=== PATIENT | female | born 1965 | race Caucasian/White ===

== ENCOUNTER → 2016-04-03 | Outpatient (CLI) | payer OTHER ==
--- NOTE | 2016-04-03 13:51 | CT ---
EXAMINATION TYPE: CT brain wo con DATE OF EXAM: 04/03/2016 1:36 PM COMPARISON: NONE HISTORY: dizziness CT DLP: 1736 (total for brain and neck) mGycm Automated exposure control for dose reduction was used. FINDINGS: There is no acute intracranial hemorrhage, mass effect, or midline shift identified. The ventricles and sulci are within normal limits in size. The globes are intact and the visualized sinuses are brisa ar. IMPRESSION: No acute intracranial hemorrhage, mass effect, or midline shift is seen.
--- NOTE | 2016-04-03 13:57 | CT ---
EXAMINATION TYPE: CT soft tissue neck w con DATE OF EXAM: 04/03/2016 1:38 PM COMPARISON: 08/11/2015 HISTORY: swollen lymph glands CT DLP: 1736 (total for brain and neck) mGycm Automated exposure control for dose reduction was used. CONTRAST: CT scan of the neck is performed following with IV Contrast, patient injected with 100 ml mL of Omnip aque 300. Axial images are obtained, coronal and sagittal reformatted images are reviewed. FINDINGS: Calcification the right peritonsillar region is nonspecific. Oropharynx and nasopharynx are symmetric. Intracranial and intraorbital structures demonstrate no abnormality. Parotid and submandibular glands have a normal appearance. There is shotty adenopathy seen scattered throughout the soft tissues of the neck. No pathologic myriam opathy seen. Hypertrophic and degenerative change of the spine noted. Subcentimeter right thyroid nodule noted. Emphysematous changes involving the lung apices with multiple subpleural areas of nodularity calcifie d granuloma left upper lobe. Sternotomy wires noted. Emphysematous changes noted. Vocal cords have a normal appearance. IMPRESSION: 1. No pathologic adenopathy 2. Multiple bilateral pulmonary nodules some of which are calcified correlate clinically. 3. Stable subcentimeter thyroid nodule on the right.
[2016-04-03 15:28] LABS: Bilirubin, Delta 0.2 mg/dL (0.0-0.2); Total Bilirubin 0.5 mg/dL (0.2-1.3); Total Protein 7.4 g/dL (6.3-8.2)
== END | disposition home or self-care (01) ==
LOC: RADCTMAIN 12:51
PROVIDERS: ATTEND Family Medicine
DX: R91.8 Other nonspecific abnormal finding of lung field (principal)
CPT/HCPCS: 80061; 80076; 70491; 70450; Q9967

== ENCOUNTER → 2016-05-15 | Outpatient (CLI) | payer OTHER ==
--- NOTE | 2016-05-15 17:03 | MR ---
EXAMINATION TYPE: MR shoulder LT wo con DATE OF EXAM: 05/15/2016 3:56 PM COMPARISON: NONE HISTORY: Left shoulder Pain TECHNIQUE: Multiplanar, multisequence imaging of the left shoulder is performed without contrast. FINDINGS: Rotator Cuff: Increased signal involving the distal supraspinatus tendons greater along the bursal soto rface and anterior fibers compatible with partial tear. No through thickness tear or retraction ident ified. Acromioclavicular Joint: Mild hypertrophic change of the AC joint. There is very mild mass effect and impingement upon the supraspinatus tendon and muscle. Glenohumeral Joint: Joint spaces preserved. No sizable effusion. Inferior glenohumeral ligament intac t. Labrum: The labrum appears grossly intact given limitation of non-arthrogram study. Biceps Tendon: The long head of biceps is in normal location within bicipital groove. Bone marrow signal: No focal abnormal marrow signal is appreciated. Other: No additional significant abnormality is appreciated. IMPRESSION: 1. Supraspinatus distal tendinosis with partial bursal surface tear but no evidence of through thickn ess tear or retraction. 2. Mild impingement secondary to hypertrophic change of the AC joint.
== END | disposition home or self-care (01) ==
LOC: RADMRIMAIN 15:00
PROVIDERS: ATTEND Psychiatry & Neurology Pain Medicine
DX: M75.112 Incomplete rotator cuff tear or rupture of left shoulder, not specified as traumatic (principal); M89.312 Hypertrophy of bone, left shoulder

== ENCOUNTER → 2017-04-22 | Outpatient (CLI) | payer OTHER ==
--- NOTE | 2017-04-23 10:51 | MM ---
Reason for exam: screening (asymptomatic). History: Patient is postmenopausal. Family history of breast cancer in mother at age 59. Took hormonal contraceptives beginning at age 14. Physical Findings: A clinical breast exam by your physician is recommended on an annual basis and results should be correlated with mammographic findings. MG Screening Mammo w CAD Bilateral CC and MLO view(s) were taken. No prior studies available for comparison. There are scattered fibroglandular densities. Focal asymmetries bilaterally upper outer quadrant suspected global asymmetries. As no prior is available for comparison purposes, 6 month follow up is recommended. ASSESSMENT: Probably benign, BI-RAD 3 RECOMMENDATION: Follow-up diagnostic mammogram of both breasts in 6 months.
== END | disposition home or self-care (01) ==
LOC: RADMAMWWP 12:50
PROVIDERS: ATTEND Family Medicine
DX: Z12.31 Encounter for screening mammogram for malignant neoplasm of breast (principal)
CPT/HCPCS: 77067

== ENCOUNTER 2017-07-12 21:12 | Observation (INO) | payer OTHER ==
--- NOTE | 2017-07-12 21:33 | ED ---
Chest Pain HPI - General Chief Complaint: Chest Pain Stated Complaint: Chest pressure Time Seen by Provider: 07/12/17 21:30 Source: patient Mode of arrival: ambulatory Limitations: no limitations - History of Present Illness Initial Comments: This patient is 52-year-old lady who presents with 2 main complaints to the emergency department today. On the first is a chest discomfort, that she describes as feeling "like someone is holding my heart but not squeezing it." She states this is been going on for nearly 2 days now. She states that it is just a very mild sensation. It has not been accompanied by any other symptoms. She has not discovered anything that makes it get better or worse. The second complaint that she has is a feeling of a "flash," that she states will start in her legs, and go up from there to her chest, and then out both arms. She states that this sensation lasts for just 1-2 seconds. She states that she has had 14 episodes of this today. She also relates that there is sometimes of visual component to it. She states that she will see something from a video game that she used to play for 1-2 seconds, when the flash comes on. The patient states that she had been having one to 2 episodes of this per day, and had seen her physician, and she does have a scheduled MRI for the first week of July. She became concerned when she was having many more episodes of it today. The patient had a previous prescription for gabapentin, with the feeling that someone sensations may be related to neuropathy and she states that she tried this today without any change MD Complaint: chest pain, other -: days(s) Onset: during rest Pain Location: substernal Pain Radiation: none Severity: mild Quality: other (See above) Consistency: constant Improves With: nothing Worsens With: nothing Treatments Prior to Arrival: none - Related Data Home Medications Medication Instructions Recorded Confirmed Aspirin EC [Ecotrin Low Dose] 81 mg PO DAILY 12/15/15 07/12/17 Atorvastatin [Lipitor] 40 mg PO HS 12/15/15 07/12/17 Azelastine Nasal [place] 0.1% 1 spray EA NOSTRIL BID PRN 12/15/15 07/12/17 Cholecalciferol [Vitamin D3] 2,000 unit PO DAILY 12/15/15 07/12/17 Cyclobenzaprine [Flexeril] 5 mg PO HS 12/15/15 07/12/17 Gabapentin [Neurontin] 100 mg PO TID 12/15/15 07/12/17 Krill/Om-3/Dha/Epa/Phospho/Ast 1 cap PO DAILY 12/15/15 07/12/17 [[place]-3 Krill Oil 300 mg Sfgl] Multivit with Calcium,Iron,Min 1 tab PO DAILY 12/15/15 07/12/17 [Women's Daily Multivitamin] Naproxen 500 mg PO BID PRN 12/15/15 07/12/17 rOPINIRole HCL [Requip] 0.5 mg PO HS 12/15/15 07/12/17 ALPRAZolam [Xanax] 0.25 mg PO DAILY PRN 07/12/17 07/12/17 Albuterol Inhaler [Ventolin Hfa 1 - 2 puff INHALATION RT-Q6H PRN 07/12/17 Inhaler] HYDROcodone/APAP 5-325MG [[place] 1 tab PO Q6HR PRN 07/12/17 07/12/17 5-325] Meclizine [Antivert] 25 mg PO TID PRN 07/12/17 07/12/17 Propafenone [Rythmol] 150 mg PO Q12H PRN 07/12/17 07/12/17 Allergies Allergy/AdvReac Type Severity Reaction Status Date / Time venom-wasp [wasp venom] Allergy Severe Anaphylaxis Verified 07/12/17 22:27 bupropion [From Wellbutrin] AdvReac Severe VIOLENT Verified 07/12/17 22:27 fluoxetine [From Prozac] AdvReac Severe SUICIDAL Verified 07/12/17 22:27 Beta-Blockers AdvReac Unknown LOW BP, Verified 07/12/17 22:27 (Beta-Adrenergic Bloc PASSES OUT milk AdvReac Unknown Unknown Verified 07/12/17 22:27 Review of Systems ROS Statement: Those systems with pertinent positive or pertinent negative responses have been documented in the HPI. ROS Other: All systems not noted in ROS Statement are negative. Constitutional: Denies: fever, chills, weakness Eyes: Denies: eye pain, vision change Respiratory: Denies: cough, dyspnea Cardiovascular: Denies: chest pain, palpitations, edema Gastrointestinal: Denies: abdominal pain, nausea, vomiting Genitourinary: Denies: dysuria Musculoskeletal: Denies: back pain Skin: Denies: rash Neurological: Denies: headache, weakness, numbness EKG Findings - EKG Results: EKG: interpreted by CHERRY MENDOSA, sinus rhythm (Rate 81 bpm), normal axis, normal QRS, normal ST/T, no acute changes - SD, Pacemaker, Normal: Normal tracing: normal tracing Past Medical History Past Medical History: Coronary Artery Disease (CAD), COPD, Hyperlipidemia, Musculoskeletal Disorder, Sleep Apnea/CPAP/BIPAP, Supraventricular Tachycardia ( SVT) Additional Past Medical History / Comment(s): RESTLESS LEG SYNDROME, USES C-PAP MACHINE, BRONCHITIS 2 WEEKS AGO., HERNIATED DISCS, HAS ATHLETES FOOT, HYPOGLYCEMIA-WATCHES DIET., VERTIGO, RAPID HEART RATE. History of Any Multi-Drug Resistant Organisms: None Reported Past Surgical History: Adenoidectomy, Coronary Bypass/CABG, Heart Catheterization Additional Past Surgical History / Comment(s): EAR TUBES , D & C, CABG (JUNE 2011 ) Past Anesthesia/Blood Transfusion Reactions: No Reported Reaction, Motion Sickness Past Psychological History: Anxiety, Panic Disorder Smoking Status: Current every day smoker Past Alcohol Use History: Heavy Past Drug Use History: None Reported - Past Family History Mother Family Medical History: Cancer Additional Family Medical History / Comment(s): BREAST CA Father Family Medical History: Cancer Additional Family Medical History / Comment(s): SKIN, LUNG, THROAT AND BRAIN CANCER WITH METS. General Exam Limitations: no limitations General appearance: alert, in no apparent distress Head exam: Present: atraumatic, normocephalic Eye exam: Present: normal appearance, PERRL, EOMI. Absent: scleral icterus, conjunctival injection, nystagmus ENT exam: Present: normal oropharynx, mucous membranes moist Neck exam: Present: normal inspection, full ROM Respiratory exam: Present: normal lung sounds bilaterally. Absent: respiratory distress, wheezes, rales, rhonchi, stridor Cardiovascular Exam: Present: regular rate, normal rhythm, normal heart sounds. Absent: systolic murmur, diastolic murmur, rubs, gallop GI/Abdominal exam: Present: soft. Absent: distended, tenderness, guarding, rebound, rigid, mass Extremities exam: Present: normal inspection, normal capillary refill. Absent: pedal edema, calf tenderness Back exam: Present: normal inspection. Absent: CVA tenderness (R), CVA tenderness (L) Neurological exam: Present: alert, oriented X3, CN II-XII intact. Absent: motor sensory deficit Skin exam: Present: warm, dry, intact, normal color. Absent: rash Course Vital Signs 07/12/17 07/12/17 21:20 21:45 Temperature 99.3 F Pulse Rate 83 Respiratory 18 18 Rate Blood Pressure 123/59 O2 Sat by Pulse 98 Oximetry Disposition Clinical Impression: Chest pain Disposition: ADMITTED IP TO THIS HOSP Condition: Good Is patient prescribed a controlled substance at d/c from ED?: No
[2017-07-12 21:58] LABS: Basophils % (A) 0 %; Eosinophils # (A) 0.2 k/uL (0-0.7); Eosinophils % (A) 3 %; HCT 46.1 % (34.0-46.0); HGB 15.7 gm/dL (11.4-16.0); Lymphocytes # (A) 2.4 k/uL (1.0-4.8); Lymphocytes % (A) 35 %; MCH 31.3 pg (25.0-35.0); MCHC 34.1 g/dL (31.0-37.0); MCV 91.7 fL (80.0-100.0); Mean Platelet Volume 6.5; Monocytes # (A) 0.3 k/uL (0-1.0); Monocytes % (A) 5 %; Neutrophils # (A) 3.9 k/uL (1.3-7.7); Neutrophils % (A) 55 %; Platelet Count 280 k/uL (150-450); RBC 5.03 m/uL (3.80-5.40)
--- NOTE | 2017-07-12 22:01 | XR ---
EXAMINATION TYPE: XR chest 1V portable DATE OF EXAM: 07/12/2017 COMPARISON: 04/29/2014 HISTORY: Chest pressure TECHNIQUE: Single frontal view of the chest is obtained. FINDINGS: There is no heart failure nor confluent pneumonic infiltrate. There are sternal wires. The re are chest leads. Costophrenic angles are clear. IMPRESSION: No active cardiopulmonary disease. No change. Old granulomatous disease.
[2017-07-12 22:07] LABS: Albumin 4.3 g/dL (3.5-5.0); Calcium 9.3 mg/dL (8.4-10.2); Magnesium 1.9 mg/dL (1.6-2.3); Partial Thromboplastin Time 23.8 sec (22.0-30.0); Potassium 4.4 mmol/L (3.5-5.1); Prothrombin Time 9.8 sec (9.0-12.0); Total Bilirubin 0.2 mg/dL (0.2-1.3)
[2017-07-12] MEDS ORDERED: NITROGLYCERIN SL TABS 0.4 MG TAB SUBLINGUAL PRN (23:17)
[2017-07-12] MEDS ORDERED: ALPRAZolam 0.25 MG TAB PO PRN (23:21)
[2017-07-12] MEDS ORDERED: ALBUTEROL NEBULIZED 2.5 MG/3 ML INHALATION PRN (23:21)
[2017-07-12] MEDS ORDERED: MECLIZINE 25 MG TAB PO PRN (23:21)
[2017-07-12] MEDS ORDERED: HYDROcodone/APAP 5-325MG 1 EACH TAB PO PRN (23:21)
[2017-07-13 00:54] VITALS: BMI 21.4
[2017-07-13 02:48] LABS: Cholesterol 240 mg/dL (<200); HDL Cholesterol 40 mg/dL (40-60); LDL Cholesterol,Calculated 185 mg/dL (0-99); Triglycerides 77 mg/dL (<150)
[2017-07-13 02:53] LABS: Creatine Kinase 42 U/L (30-135)
[2017-07-13 03:06] LABS: Creatine Kinase MB <0.2 ng/mL (0.0-2.4); Troponin I <0.012 ng/mL (0.000-0.034)
[2017-07-13 06:46] VITALS: RESP 18
--- NOTE | 2017-07-13 08:12 | P.CRDCN ---
History of Present Illness Consult date: 07/13/17 Requesting physician: Va Reynolds Consult reason: chest pain Chief complaint: Chest pain History of present illness: This is a 52-year-old female with history of coronary artery disease and prior bypass surgery, two-vessel, she states this was performed in 2011, history of hypertension, hyperlipidemia, not on any statins, nicotine dependence , anxiety, COPD. She presents to the hospital with symptoms of chest discomfort that she describes as somebody holding her heart, mild squeezing sensation, she denies any pressure, or pain. He denies any associated shortness of breath. She states with that she gets a sensation of burning which at times starts in her feet and other times radiates across his chest. According to the patient, she is under considerable stress, and states that she' s had several mental breakdowns recently. Blood pressure on arrival here 122/ 60 with a heart rate in the 80s, temperature 99.3 she's 98% on room air. Blood pressure this morning 113/56, heart rate in the 50s to 60s, afebrile, 98% on room air. Laboratory data was reviewed, white blood cell count 7.0, hemoglobin 15.7, platelet count 280. Sodium 143, potassium 4.4, BUN 14, creatinine 1.0, magnesium 1.9. Troponins are negative 2. Cholesterol 240, LDL 185, HDL 40, triglycerides 77. Chest x-ray does not reveal any acute cardiopulmonary disease. Her initial EKG on presentation here shows a normal sinus rhythm with ST-T wave changes noted in the anterior leads. Subsequent EKG shows normal sinus rhythm with progression of changes in the anterior leads. At the time of my examination this morning, she denies any chest discomfort, she just feels sleepy. 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. Past Medical History Past Medical History: Coronary Artery Disease (CAD), COPD, Hyperlipidemia, Musculoskeletal Disorder, Sleep Apnea/CPAP/BIPAP, Supraventricular Tachycardia ( SVT) Additional Past Medical History / Comment(s): RESTLESS LEG SYNDROME, USES C-PAP MACHINE, HERNIATED DISCS, HAS ATHLETES FOOT, HYPOGLYCEMIA-WATCHES DIET., VERTIGO, RAPID HEART RATE. History of Any Multi-Drug Resistant Organisms: None Reported Past Surgical History: Adenoidectomy, Coronary Bypass/CABG, Heart Catheterization Additional Past Surgical History / Comment(s): EAR TUBES , D & C, CABG (JUNE 2011 ) Past Anesthesia/Blood Transfusion Reactions: No Reported Reaction, Motion Sickness Past Psychological History: Anxiety, Bipolar, Panic Disorder Smoking Status: Current every day smoker Past Alcohol Use History: Heavy Additional Past Alcohol Use History / Comment(s): SMOKING SINCE 12 YRS OLD, SMOKES 1-2 PPD., SMOKING FOR 39 YEARS. STATES SHE USED TO DRINK HEAVILY AND QUIT 3 YEARS AGO. Past Drug Use History: None Reported - Past Family History Mother Family Medical History: Cancer Additional Family Medical History / Comment(s): BREAST CA Father Family Medical History: Cancer Additional Family Medical History / Comment(s): SKIN, LUNG, THROAT AND BRAIN CANCER WITH METS. Medications and Allergies Home Medications Medication Instructions Recorded Confirmed Type Aspirin EC [Ecotrin Low Dose] 81 mg PO DAILY 12/15/15 07/12/17 History Atorvastatin [Lipitor] 40 mg PO HS 12/15/15 07/12/17 History Azelastine Nasal [place] 0.1% 1 spray EA NOSTRIL BID PRN 12/15/15 07/12/17 History Cholecalciferol [Vitamin D3] 2,000 unit PO DAILY 12/15/15 07/12/17 History Cyclobenzaprine [Flexeril] 5 mg PO HS 12/15/15 07/12/17 History Gabapentin [Neurontin] 100 mg PO TID 12/15/15 07/12/17 History Krill/Om-3/Dha/Epa/Phospho/Ast 1 cap PO DAILY 12/15/15 07/12/17 History [[place]-3 Krill Oil 300 mg Sfgl] Multivit with Calcium,Iron,Min 1 tab PO DAILY 12/15/15 07/12/17 History [Women's Daily Multivitamin] Naproxen 500 mg PO BID PRN 12/15/15 07/12/17 History rOPINIRole HCL [Requip] 0.5 mg PO HS 12/15/15 07/12/17 History ALPRAZolam [Xanax] 0.25 mg PO DAILY PRN 07/12/17 07/12/17 History Albuterol Inhaler [Ventolin Hfa 1 - 2 puff INHALATION RT-Q6H PRN 07/12/17 History Inhaler] HYDROcodone/APAP 5-325MG [[place] 1 tab PO Q6HR PRN 07/12/17 07/12/17 History 5-325] Meclizine [Antivert] 25 mg PO TID PRN 07/12/17 07/12/17 History Propafenone [Rythmol] 150 mg PO Q12H PRN 07/12/17 07/12/17 History Allergies Allergy/AdvReac Type Severity Reaction Status Date / Time venom-wasp [wasp venom] Allergy Severe Anaphylaxis Verified 07/12/17 22:27 bupropion [From Wellbutrin] AdvReac Severe VIOLENT Verified 07/12/17 22:27 fluoxetine [From Prozac] AdvReac Severe SUICIDAL Verified 07/12/17 22:27 Beta-Blockers AdvReac Unknown LOW BP, Verified 07/12/17 22:27 (Beta-Adrenergic Bloc PASSES OUT milk AdvReac Unknown Unknown Verified 07/12/17 22:27 Physical Exam Vitals: Vital Signs Temp Pulse Pulse Resp BP BP Pulse Ox 07/13/17 04:00 97.6 F 58 L 17 113/55 98 07/13/17 00:03 98.6 F 77 16 133/77 98 07/13/17 00:02 97.1 F L 64 18 113/63 96 07/12/17 21:45 18 07/12/17 21:20 99.3 F 83 18 123/59 98 Intake and Output 07/12/17 07/13/17 07/13/17 22:59 06:59 14:59 Other: Weight 60.328 kg 60.3 kg PHYSICAL EXAMINATION: GENERAL: This is a 52-year-old female in no apparent distress examination. HEENT: Head is atraumatic, normocephalic. Pupils equal, round. Sclera anicteric. Conjunctiva are clear. Mucous membranes of the mouth are moist. Neck is supple. There is no elevated jugular venous pressure.] bruit is heard. HEART EXAMINATION: Heart S1 and S2 systolic murmur is heard. CHEST EXAMINATION: Lungs are clear to auscultation and precussion. No chest wall tenderness is noted on palpation or with deep breathing. ABDOMEN: Soft, nontender. Bowel sounds are heard. No organomegaly noted. EXTREMITIES: 2+ peripheral pulses with no evidence of peripheral edema and no calf tenderness noted. NEUROLOGIC patient is awake, alert and oriented -3. . Results 07/12/17 21:34 07/12/17 21:34 Cardiac Enzymes 07/12/17 07/12/17 07/13/17 Range/Units 21:34 21:34 02:28 AST 27 (14-36) U/L CK-MB (CK-2) <0.2 (0.0-2.4) ng/mL Troponin I <0.012 <0.012 (0.000-0.034) ng/mL Coagulation 07/12/17 Range/Units 21:34 PT 9.8 (9.0-12.0) sec APTT 23.8 (22.0-30.0) sec Lipids 07/13/17 Range/Units 02:28 Triglycerides 77 (<150) mg/dL Cholesterol 240 H (<200) mg/dL HDL Cholesterol 40 (40-60) mg/dL CBC 07/12/17 Range/Units 21:34 WBC 7.0 (3.8-10.6) k/uL RBC 5.03 (3.80-5.40) m/uL Hgb 15.7 (11.4-16.0) gm/dL Hct 46.1 H (34.0-46.0) % Plt Count 280 (150-450) k/uL Comprehensive Metabolic Panel 07/12/17 Range/Units 21:34 Sodium 143 (137-145) mmol/L Potassium 4.4 (3.5-5.1) mmol/L Chloride 104 (98-107) mmol/L Carbon Dioxide 25 (22-30) mmol/L BUN 14 (7-17) mg/dL Creatinine 1.00 (0.52-1.04) mg/dL Glucose 90 (74-99) mg/dL Calcium 9.3 (8.4-10.2) mg/dL AST 27 (14-36) U/L ALT 31 (9-52) U/L Alkaline Phosphatase 82 (38-126) U/L Total Protein 7.0 (6.3-8.2) g/dL Albumin 4.3 (3.5-5.0) g/dL Current Medications Generic Name Dose Route Start Last Admin Trade Name Freq PRN Reason Stop Dose Admin Hydrocodone Bitart/Acetaminophen 1 each 07/12/17 23:21 [place] 5-325 PO Q6HR PRN Pain Albuterol Sulfate 2.5 mg 07/12/17 23:21 Ventolin Nebulized INHALATION RT-Q6H PRN Shortness Of Breath Alprazolam 0.25 mg 07/12/17 23:21 Xanax PO DAILY PRN Anxiety Aspirin 325 mg 07/13/17 09:00 Aspirin PO DAILY MALACHI Aspirin 81 mg 07/13/17 09:00 Aspirin PO DAILY MALACHI Atorvastatin Calcium 40 mg 07/13/17 21:00 Lipitor PO HS MALACHI Cholecalciferol 2,000 unit 07/13/17 09:00 Vitamin D3 PO DAILY MALACHI Cyclobenzaprine HCl 5 mg 07/13/17 21:00 Flexeril PO HS MALACHI Gabapentin 100 mg 07/13/17 09:00 Neurontin PO TID MALACHI Meclizine HCl 25 mg 07/12/17 23:21 Antivert PO TID PRN Vertigo Nitroglycerin 0.4 mg 07/12/17 23:17 Nitrostat SUBLINGUAL Q5M PRN Chest Pain Ropinirole HCl 0.5 mg 07/13/17 01:00 07/13/17 06:50 Requip PO Not Given HS MALACHI Intake and Output 07/12/17 07/13/17 07/13/17 22:59 06:59 14:59 Other: Weight 60.328 kg 60.3 kg 07/12/17 21:34 07/12/17 21:34 EKG Interpretations (text) EKG shows a normal sinus rhythm with ST-T wave changes noted in the anterior leads. Assessment and Plan Plan: Assessment and plan #1 chest pain, with some atypical in nature, cannot completely rule out acute coronary syndrome. 2 troponins are negative. EKG shows normal sinus rhythm with anterior ST-T wave changes. #2 known history of coronary artery disease with double bypass surgery performed in 2011, exact details unavailable #3 hypertension #4 hyperlipidemia, patient stopped taking her cholesterol medications in November #5 nicotine dependence #6 anxiety and current elevated stress levels. #7 COPD Plan We will obtain an echocardiogram with Doppler study. Continue aspirin, patient has been resumed on a statin. Heparin drip was not initiated. We will obtain a third troponin value. Further recommendations will be based on these findings and patient's clinical course. DNP note has been reviewed, I agree with a documented findings and plan of care. Patient was seen and examined.
[2017-07-13] MEDS ORDERED: ASPIRIN 325 MG TAB PO SCH (09:00)
[2017-07-13] MEDS ORDERED: ASPIRIN 81 MG PO SCH (09:00)
[2017-07-13] MEDS ORDERED: CHOLECALCIFEROL 1,000 UNIT TAB PO SCH (09:00)
[2017-07-13] MEDS ORDERED: GABAPENTIN 100 MG CAP PO SCH (09:00)
[2017-07-13 09:31] LABS: Creatine Kinase 38 U/L (30-135)
[2017-07-13 09:40] VITALS: TEMP 96.8
[2017-07-13 09:43] LABS: Creatine Kinase MB <0.2 ng/mL (0.0-2.4); Troponin I <0.012 ng/mL (0.000-0.034)
[2017-07-13] MEDS ORDERED: NICOTINE 21MG/24HR PATCH TRANSDERM SCH (12:15)
--- NOTE | 2017-07-13 13:49 | P.HPIM ---
History of Present Illness H&P Date: 07/13/17 This is a 52-year-old female with past history of Coronary artery disease status post CABG in 2011, essential hypertension, hyperlipidemia, and tobacco abuse who presented to the emergency room with burning in her chest. Patient said that she has been having burning sensation on and off since yesterday. She had approximately 10 of those episodes. She denies having benny chest pain. She denies having acid reflux-like symptoms. The burning sensation with mostly in the middle of her chest. It was not associated with shortness of breath. No dizziness or lightheadedness. She was concerned and decided to come to the emergency room for further evaluation. In the emergency room, 12- lead EKG showed no acute ischemic changes. Chest x-ray was unremarkable. Patient was placed on observation. Serial troponin were negative 3 sets. Patient was seen by cardiology. Echocardiogram was ordered and report is still pending. Patient was counseled extensively about tobacco abuse. Also counseled extensively about compliance with her Lipitor. She is currently chest pain-free. She is medically cleared by cardiology for discharge. Review of Systems Review of system: 14 points review of systems were obtained and were negative except to what were mentioned in the HPI. Past Medical History Past Medical History: Coronary Artery Disease (CAD), COPD, Hyperlipidemia, Musculoskeletal Disorder, Sleep Apnea/CPAP/BIPAP, Supraventricular Tachycardia ( SVT) Additional Past Medical History / Comment(s): RESTLESS LEG SYNDROME, USES C-PAP MACHINE, HERNIATED DISCS, HAS ATHLETES FOOT, HYPOGLYCEMIA-WATCHES DIET., VERTIGO, RAPID HEART RATE. History of Any Multi-Drug Resistant Organisms: None Reported Past Surgical History: Adenoidectomy, Coronary Bypass/CABG, Heart Catheterization Additional Past Surgical History / Comment(s): EAR TUBES , D & C, CABG (JUNE 2011 ) Past Anesthesia/Blood Transfusion Reactions: No Reported Reaction, Motion Sickness Past Psychological History: Anxiety, Bipolar, Panic Disorder Smoking Status: Current every day smoker Past Alcohol Use History: Heavy Additional Past Alcohol Use History / Comment(s): SMOKING SINCE 12 YRS OLD, SMOKES 1-2 PPD., SMOKING FOR 39 YEARS. STATES SHE USED TO DRINK HEAVILY AND QUIT 3 YEARS AGO. Past Drug Use History: None Reported - Past Family History Mother Family Medical History: Cancer Additional Family Medical History / Comment(s): BREAST CA Father Family Medical History: Cancer Additional Family Medical History / Comment(s): SKIN, LUNG, THROAT AND BRAIN CANCER WITH METS. Medications and Allergies Home Medications Medication Instructions Recorded Confirmed Type Aspirin EC [Ecotrin Low Dose] 81 mg PO DAILY 12/15/15 07/12/17 History Atorvastatin [Lipitor] 40 mg PO HS 12/15/15 07/12/17 History Azelastine Nasal [place] 0.1% 1 spray EA NOSTRIL BID PRN 12/15/15 07/12/17 History Cholecalciferol [Vitamin D3] 2,000 unit PO DAILY 12/15/15 07/12/17 History Cyclobenzaprine [Flexeril] 5 mg PO HS 12/15/15 07/12/17 History Gabapentin [Neurontin] 100 mg PO TID 12/15/15 07/12/17 History Krill/Om-3/Dha/Epa/Phospho/Ast 1 cap PO DAILY 12/15/15 07/12/17 History [[place]-3 Krill Oil 300 mg Sfgl] Multivit with Calcium,Iron,Min 1 tab PO DAILY 12/15/15 07/12/17 History [Women's Daily Multivitamin] Naproxen 500 mg PO BID PRN 12/15/15 07/12/17 History rOPINIRole HCL [Requip] 0.5 mg PO HS 12/15/15 07/12/17 History ALPRAZolam [Xanax] 0.25 mg PO DAILY PRN 07/12/17 07/12/17 History Albuterol Inhaler [Ventolin Hfa 1 - 2 puff INHALATION RT-Q6H PRN 07/12/17 History Inhaler] HYDROcodone/APAP 5-325MG [[place] 1 tab PO Q6HR PRN 07/12/17 07/12/17 History 5-325] Meclizine [Antivert] 25 mg PO TID PRN 07/12/17 07/12/17 History Propafenone [Rythmol] 150 mg PO Q12H PRN 07/12/17 07/12/17 History Allergies Allergy/AdvReac Type Severity Reaction Status Date / Time venom-wasp [wasp venom] Allergy Severe Anaphylaxis Verified 07/12/17 22:27 bupropion [From Wellbutrin] AdvReac Severe VIOLENT Verified 07/12/17 22:27 fluoxetine [From Prozac] AdvReac Severe SUICIDAL Verified 07/12/17 22:27 Beta-Blockers AdvReac Unknown LOW BP, Verified 07/12/17 22:27 (Beta-Adrenergic Bloc PASSES OUT milk AdvReac Unknown Unknown Verified 07/12/17 22:27 Physical Exam Vitals: Vital Signs Temp Pulse Pulse Resp BP BP Pulse Ox 07/13/17 08:00 96.8 F L 76 111/57 98 07/13/17 04:00 97.6 F 58 L 17 113/55 98 07/13/17 00:03 98.6 F 77 16 133/77 98 07/13/17 00:02 97.1 F L 64 18 113/63 96 07/12/17 21:45 18 07/12/17 21:20 99.3 F 83 18 123/59 98 Intake and Output 07/12/17 07/13/17 07/13/17 22:59 06:59 14:59 Other: Weight 60.328 kg 60.3 kg General: The patient is awake and alert, in no distress Eye: there is normal conjunctiva bilaterally. Neck: The neck is supple, there is no JVD. Cardiovascular: Normal S1-S2, no S3-S4, no murmurs. Respiratory: Lungs clear to auscultation bilaterally Gastrointestinal: Abdomen is soft, nontender Musculoskeletal: There is no pedal edema. Neurological:. Speech is normal. Skin: Skin is warm and dry Results CBC & Chem 7: 07/12/17 21:34 07/12/17 21:34 Labs: Abnormal Lab Results - Last 24 Hours (Table) 07/12/17 07/13/17 Range/Units 21:34 02:28 Hct 46.1 H (34.0-46.0) % Cholesterol 240 H (<200) mg/dL LDL Cholesterol, Calc 185 H (0-99) mg/dL Thrombosis Risk Factor Assmnt - Choose All That Apply Each Factor Represents 1 point: Abnormal pulmonary function (COPD), Age 41-60 years Thrombosis Risk Factor Assessment Total Risk Factor Score: 2 Thrombosis Risk Factor Assessment Level: Low Risk Assessment and Plan Assessment: This is a 52-year-old female with past history of Coronary artery disease status post CABG in 2011, essential hypertension, hyperlipidemia, and tobacco abuse who presented to the emergency room with burning in her chest. Patient said that she has been having burning sensation on and off since yesterday. She had approximately 10 of those episodes. She denies having benny chest pain. She denies having acid reflux-like symptoms. The burning sensation with mostly in the middle of her chest. It was not associated with shortness of breath. No dizziness or lightheadedness. She was concerned and decided to come to the emergency room for further evaluation. In the emergency room, 12- lead EKG showed no acute ischemic changes. Chest x-ray was unremarkable. Patient was placed on observation. Serial troponin were negative 3 sets. Patient was seen by cardiology. Echocardiogram was ordered and report is still pending. Patient was counseled extensively about tobacco abuse. Also counseled extensively about compliance with her Lipitor. She is currently chest pain-free. She is medically cleared by cardiology for discharge. 1. Chest pain, atypical in nature. Cleared by cardiology for discharge home. 2. Hyperlipidemia, not well controlled. Counseled regarding compliance with Lipitor 3. Tobacco abuse: Counseled extensively to quit. Patient is not interested 4. Underlying coronary artery disease with history of CABG in 2011. Continue medical management 5. COPD with no evidence of exacerbation
--- NOTE | 2017-07-13 13:50 | P.DS ---
Providers Date of admission: 07/12/17 23:17 Expected date of discharge: 07/13/17 Attending physician: Va Reynolds Consults: 07/12/17 23:17 Consult Physician Routine Consulting Provider: Rommel Rios Consult Reason/Comments: atypical chest pain Do you want consulting provider notified?: Yes Primary care physician: [facility] Hospital Course: This is a 52-year-old female with past history of Coronary artery disease status post CABG in 2012, essential hypertension, hyperlipidemia, and tobacco abuse who presented to the emergency room with burning in her chest. Patient said that she has been having burning sensation on and off since yesterday. She had approximately 10 of those episodes. She denies having benny chest pain. She denies having acid reflux-like symptoms. The burning sensation with mostly in the middle of her chest. It was not associated with shortness of breath. No dizziness or lightheadedness. She was concerned and decided to come to the emergency room for further evaluation. In the emergency room, 12- lead EKG showed no acute ischemic changes. Chest x-ray was unremarkable. Patient was placed on observation. Serial troponin were negative 3 sets. Patient was seen by cardiology. Echocardiogram was ordered and report is still pending. Patient was counseled extensively about tobacco abuse. Also counseled extensively about compliance with her Lipitor. She is currently chest pain-free. She is medically cleared by cardiology for discharge. 1. Chest pain, atypical in nature. Cleared by cardiology for discharge home. 2. Hyperlipidemia, not well controlled. Counseled regarding compliance with Lipitor 3. Tobacco abuse: Counseled extensively to quit. Patient is not interested 4. Underlying coronary artery disease with history of CABG in 2012. Continue medical management 5. COPD with no evidence of exacerbation Plan - Discharge Summary New Discharge Prescriptions: Continue Naproxen 500 mg PO BID PRN PRN Reason: Pain Gabapentin [Neurontin] 100 mg PO TID Cyclobenzaprine [Flexeril] 5 mg PO HS Cholecalciferol [Vitamin D3] 2,000 unit PO DAILY Aspirin EC [Ecotrin Low Dose] 81 mg PO DAILY rOPINIRole HCL [Requip] 0.5 mg PO HS Atorvastatin [Lipitor] 40 mg PO HS Multivit with Calcium,Iron,Min [Women's Daily Multivitamin] 1 tab PO DAILY Krill/Om-3/Dha/Epa/Phospho/Ast [[place]-3 Krill Oil 300 mg Sfgl] 1 cap PO DAILY Azelastine Nasal [place] 0.1% 1 spray EA NOSTRIL BID PRN PRN Reason: SINUS DRAINAGE Albuterol Inhaler [Ventolin Hfa Inhaler] 1 - 2 puff INHALATION RT-Q6H PRN PRN Reason: Shortness Of Breath ALPRAZolam [Xanax] 0.25 mg PO DAILY PRN PRN Reason: Anxiety HYDROcodone/APAP 5-325MG [[place] 5-325] 1 tab PO Q6HR PRN PRN Reason: Pain Meclizine [Antivert] 25 mg PO TID PRN PRN Reason: Vertigo Propafenone [Rythmol] 150 mg PO Q12H PRN PRN Reason: Heart Rate - High Discharge Medication List Aspirin EC [Ecotrin Low Dose] 81 mg PO DAILY 12/15/15 [History] Atorvastatin [Lipitor] 40 mg PO HS 12/15/15 [History] Azelastine Nasal [place] 0.1% 1 spray EA NOSTRIL BID PRN 12/15/15 [History] Cholecalciferol [Vitamin D3] 2,000 unit PO DAILY 12/15/15 [History] Cyclobenzaprine [Flexeril] 5 mg PO HS 12/15/15 [History] Gabapentin [Neurontin] 100 mg PO TID 12/15/15 [History] Krill/Om-3/Dha/Epa/Phospho/Ast [[place]-3 Krill Oil 300 mg Sfgl] 1 cap PO DAILY [History] Multivit with Calcium,Iron,Min [Women's Daily Multivitamin] 1 tab PO DAILY 12/14 [History] Naproxen 500 mg PO BID PRN 12/15/15 [History] rOPINIRole HCL [Requip] 0.5 mg PO HS 12/15/15 [History] ALPRAZolam [Xanax] 0.25 mg PO DAILY PRN 07/12/17 [History] Albuterol Inhaler [Ventolin Hfa Inhaler] 1 - 2 puff INHALATION RT-Q6H PRN [History] HYDROcodone/APAP 5-325MG [[place] 5-325] 1 tab PO Q6HR PRN 07/12/17 [History] Meclizine [Antivert] 25 mg PO TID PRN 07/12/17 [History] Propafenone [Rythmol] 150 mg PO Q12H PRN 07/12/17 [History] Follow up Appointment(s)/Referral(s): Tabitha Bellamy MD [Primary Care Provider] - 1-2 days Discharge Disposition: HOME SELF-CARE
[2017-07-13 15:13] VITALS: BP 101/50; PULSE 51
--- NOTE | 2017-07-13 16:34 | PN ---
PROGRESS NOTE Mrs Gregorio is a 52-year-old lady with a past history of aortocoronary bypass surgery who now sees a field consultant in the [facility]. She came in mostly with symptoms of anxiety, sharp feelings in the chest which have resolved. She has what seems to be more or less anxiety type disorder. Her troponins are normal. EKG revealed precordial nonspecific ST-T changes with normal troponin and pain that is atypical. Physical exam did not reveal any significant abnormalities. I am advising that she should have some stress test, but the patient has already a scheduled appointment with her field consultant on and she is scheduled to have a stress test as well. If she has no further symptoms, she can be discharged with anxiolytics by the admitting doctor and follow up closely with her field consultant. Apparently 6 months ago also she claims she had a stress test that was normal. The patient is pain-free, asymptomatic from a cardiac standpoint, but does have some anxiety which is being addressed with Xanax. This is an addendum to the note that has already been dictated by Dr. Kayleigh Henderson, nurse practitioner. MMODL / IJN: [id number] /
[2017-07-13] MEDS ORDERED: CYCLOBENZAPRINE 5 MG TAB PO SCH (21:00)
[2017-07-13] MEDS ORDERED: ATORVASTATIN 40 MG TAB PO SCH (21:00)
[2017-07-13] MEDS ORDERED: HEPARIN SODIUM,PORCINE 5,000 UNIT/ML 1 ML VIAL SQ SCH (21:00)
--- NOTE | 2017-07-14 07:42 | ECHOF ---
Referral Reason:chest pain MEASUREMENTS -------- HEIGHT: 167.6 cm WEIGHT: 59.9 kg BP: 113/55 IVSd: 1.1 cm (0.6 - 1.1) LVIDd: 3.8 cm (3.9 - 5.3) LVPWd: 1.0 cm (0.6 - 1.1) IVSs: 1.3 cm LVIDs: 2.3 cm LVPWs: 1.1 cm LAESV Index (A-L): 31.29 ml/m Ao Diam: 3.0 cm (2.0 - 3.7) AV Cusp: 1.5 cm (1.5 - 2.6) LA Diam: 2.7 cm (2.7 - 3.8) MV E Domingo: 0.89 m/s MV DecT: 191 ms MV A Domingo: 0.70 m/s MV E/A Ratio: 1.28 AR PHT: 827 ms RAP: 5.00 mmHg RVSP: 19.96 mmHg FINDINGS -------- Resting bradycardia (HR<60bpm). This was a technically adequate study. The left ventricular size is normal. Left ventricular wall thickness is normal. Overall left vent ricular systolic function is normal with, an EF between 55 - 60 %. The right ventricle is normal in size and function. Normal LA size by volume 22+/-6 ml/m2. The right atrium is normal in size. Aortic valve is trileaflet and is mildly thickened. There is mild aortic regurgitation. There is no evidence of aortic stenosis. The mitral valve leaflets are mildly thickened. There is trace to mild mitral regurgitation. Trace tricuspid regurgitation present. Right ventricular systolic pressure is normal at < 35 mmHg. There is no evidence of pulmonary hypertension. The pulmonic valve was not well visualized. The aortic root is borderline dilated up to 3.7 cm. Normal inferior vena cava with normal inspiratory collapse consistent with estimated right atrial pre ssure of 5 mmHg. There is no pericardial effusion. CONCLUSIONS -------- 1. Resting bradycardia (HR<60bpm). 2. This was a technically adequate study. 3. The left ventricular size is normal. 4. Left ventricular wall thickness is normal. 5. Overall left ventricular systolic function is normal with, an EF between 55 - 60 %. 6. Normal LA size by volume 22+/-6 ml/m2. 7. Aortic valve is trileaflet and is mildly thickened. 8. There is mild aortic regurgitation. 9. The mitral valve leaflets are mildly thickened. 10. There is trace to mild mitral regurgitation. 11. Trace tricuspid regurgitation present. 12. Right ventricular systolic pressure is normal at < 35 mmHg. 13. There is no evidence of pulmonary hypertension. 14. The pulmonic valve was not well visualized. 15. The aortic root is borderline dilated up to 3.7 cm. 16. There is no pericardial effusion. DESK ASSISTANT: Mahamed Castro RDCS
== END 2017-07-13 15:19 | disposition home or self-care (01) ==
LOC: EC 21:12 → 6SEL 23:17
PROVIDERS: ADMIT Internal Medicine; ATTEND Internal Medicine
DX: R07.89 Other chest pain (principal); R07.2 Precordial pain; I25.10 Atherosclerotic heart disease of native coronary artery without angina pectoris; Z95.1 Presence of aortocoronary bypass graft; I10 Essential (primary) hypertension; E78.5 Hyperlipidemia, unspecified; F17.210 Nicotine dependence, cigarettes, uncomplicated; F41.0 Panic disorder [episodic paroxysmal anxiety]; J44.9 Chronic obstructive pulmonary disease, unspecified; R20.8 Other disturbances of skin sensation; F31.9 Bipolar disorder, unspecified; G47.30 Sleep apnea, unspecified; Z99.89 Dependence on other enabling machines and devices; I47.1 Supraventricular tachycardia; G25.81 Restless legs syndrome; Z87.09 Personal history of other diseases of the respiratory system; R42 Dizziness and giddiness; E16.2 Hypoglycemia, unspecified; Z91.128 Patient's intentional underdosing of medication regimen for other reason; T46.6X6A Underdosing of antihyperlipidemic and antiarteriosclerotic drugs, initial encounter; Z79.82 Long term (current) use of aspirin; Z79.899 Other long term (current) drug therapy; Z91.011 Allergy to milk products; Z88.8 Allergy status to other drugs, medicaments and biological substances; Z91.048 Other nonmedicinal substance allergy status; Z80.3 Family history of malignant neoplasm of breast; Z80.1 Family history of malignant neoplasm of trachea, bronchus and lung; Z80.8 Family history of malignant neoplasm of other organs or systems
CPT/HCPCS: 36415; 71045; 80053; 80061; 82550; 82553; 83735; 84484; 85025; 85610; 85730; 93005; 93306; 99285

== ENCOUNTER → 2017-11-04 | Outpatient (CLI) | payer OTHER ==
--- NOTE | 2017-11-04 10:54 | MM ---
Reason for exam: follow-up at short interval from prior study. Last mammogram was performed 6 months ago. History: Patient is postmenopausal. Family history of breast cancer in mother at age 59. Took hormonal contraceptives beginning at age 14. Physical Findings: Nurse did not find any significant physical abnormalities on exam. MG Diagnostic Mammo w CAD RUFINA Bilateral CC and MLO view(s) were taken. Prior study comparison: April 22, 2017, bilateral MG screening mammo w CAD. There are scattered fibroglandular densities. Areas of bilateral asymmetric densities are unchanged for 6 months. Continue of short interval follow up recommended, as patient's older priors are not available for comparison. These results were verbally communicated with the patient and result sheet given to the patient on 11/04/17. ASSESSMENT: Probably benign, BI-RAD 3 RECOMMENDATION: Follow-up diagnostic mammogram of both breasts in 6 months. (total 1 year follow up)
== END ==
LOC: RADMAMWWP 09:54
PROVIDERS: ATTEND Family Medicine
DX: R92.8 Other abnormal and inconclusive findings on diagnostic imaging of breast (principal)
CPT/HCPCS: 77066

== ENCOUNTER → 2018-04-18 | Outpatient (CLI) | payer OTHER ==
[2018-04-18 23:15] LABS: ALT 21 U/L (8-44); AST 26 U/L (13-35); Albumin/Globulin Ratio 2.23 (1.60-3.17); Alkaline Phosphatase 113 U/L (41-126); C Reactive Protein <0.4 mg/dL (0.0-0.8); Calcium 9.3 mg/dL (8.7-10.3); Chloride 105 mmol/L (96-109); Globulin 2.2 g/dL (1.6-3.3); Glucose 89 mg/dL (70-110); Potassium 4.5 mmol/L (3.5-5.5); Sodium 135 mmol/L (135-145); Total Bilirubin 0.4 mg/dL (0.3-1.2); Total Protein 7.1 g/dL (6.2-8.2)
[2018-04-18 23:55] LABS: Cyclic Citrullinated Pep IgG NEGATIVE (NEGATIVE); DNA Double-Stranded Indetermin (NEGATIVE); RNP <0.2 AI; Scleroderma SC-70 Ab <0.2 AI
== END ==
LOC: LABWHC1 15:11
PROVIDERS: ATTEND Psychiatry & Neurology Pain Medicine
DX: M25.50 Pain in unspecified joint (principal)
CPT/HCPCS: 36415; 80053; 83516; 85652; 86038; 86140; 86200; 86225; 86235

== ENCOUNTER → 2018-05-09 | Outpatient (CLI) | payer OTHER ==
--- NOTE | 2018-05-09 13:35 | MM ---
Reason for exam: follow-up at short interval from prior study. Last mammogram was performed 6 months ago. History: Patient is postmenopausal. Family history of breast cancer in mother at age 59. Took hormonal contraceptives beginning at age 14. Physical Findings: Nurse did not find any significant physical abnormalities on exam. MG Diagnostic Mammo w CAD RUFINA Bilateral CC and MLO view(s) were taken. Prior study comparison: November 04, 2017, bilateral MG diagnostic mammo w CAD RUFINA. April 22, 2017, bilateral MG screening mammo w CAD. The breast tissue is heterogeneously dense. This may lower the sensitivity of mammography. There is no discrete abnormality. These results were verbally communicated with the patient and result sheet given to the patient on 05/09/18. ASSESSMENT: Negative, BI-RAD 1 RECOMMENDATION: Routine screening mammogram of both breasts in 1 year.
--- NOTE | 2018-05-09 14:13 | XR ---
EXAMINATION TYPE: XR chest 2V DATE OF EXAM: 05/09/2018 COMPARISON: Prior chest x-ray 07/12/2017 HISTORY: Cough TECHNIQUE: Frontal and lateral views of the chest are obtained. FINDINGS: Scattered calcified granuloma again noted within the lungs. Patient is post median sternoto my. There is a scoliotic curvature in the visualized spine. There are prominent lung volumes as on pr ior exam suggesting COPD. There is no focal air space opacity, pleural effusion, or pneumothorax seen . The cardiac silhouette size is within normal limits. The osseous structures are intact. IMPRESSION: No acute cardiopulmonary process.
== END | disposition home or self-care (01) ==
LOC: RADMAMWWP 12:56
PROVIDERS: ATTEND Family Medicine
DX: R92.8 Other abnormal and inconclusive findings on diagnostic imaging of breast (principal); R05 Cough
CPT/HCPCS: 71046; 77066

== ENCOUNTER → 2018-07-07 | Outpatient (CLI) | payer OTHER ==
[2018-07-07 18:57] LABS: Rheumatoid Factor 6 IU/mL (0-15)
[2018-07-07 21:27] LABS: DNA Double-Stranded NEGATIVE (NEGATIVE); RNP <0.2 AI; Scleroderma SC-70 Ab <0.2 AI
[2018-07-09 10:22] LABS: Cyclic Citrullinated Pep IgG 5
== END ==
LOC: LABWHC1 14:45
PROVIDERS: ATTEND Psychiatry & Neurology Pain Medicine
DX: M25.50 Pain in unspecified joint (principal)
CPT/HCPCS: 36415; 83516; 85652; 86038; 86140; 86200; 86225; 86235; 86431

== ENCOUNTER → 2018-12-22 | Outpatient (CLI) | payer OTHER ==
[2018-12-22 22:17] LABS: Total Protein,CSF 55 mg/dL (12-60)
[2018-12-22 22:48] LABS: Appearance,CSF Clear; CSF Tube Number 4; CSF Tube Volume 3
[2018-12-22 22:49] LABS: Nucleated Cells, CSF 0 u/L (0-5); Red Blood Cell,CSF 0 u/L (0-10)
[2018-12-24 14:18] LABS: IgG - CSF 2.2 mg/dL (0.0 - 3.4); IgG/Albumin Index (CSF) 0.45 (0.00 - 0.77); Immunoglobulin G 783 mg/dL (700 - 1600)
== END | disposition home or self-care (01) ==
LOC: LABWHC1 08:26
PROVIDERS: ATTEND Psychiatry & Neurology Pain Medicine
DX: R90.82 White matter disease, unspecified (principal)
CPT/HCPCS: 36415; 82040; 82042; 82784; 83873; 83916; 84157; 87529; 87801; 89050

== ENCOUNTER → 2019-03-23 | Outpatient (CLI) | payer OTHER ==
--- NOTE | 2019-03-23 12:24 | FL ---
EXAMINATION TYPE: FL UGI air w small bowel DATE OF EXAM: 03/23/2019 COMPARISON: NONE HISTORY: R10.84 generalized abdominal pain TECHNIQUE: A double contrast UGI study is performed with small bowel follow through. FINDINGS: Pack Out Operator image of the abdomen shows no gross abnormality. The esophagus shows normal motility and emptying into the stomach. No evidence of hiatal hernia or s tricture noted. The stomach shows normal distensibility, peristalsis, and mucosal folds. No evidence of any mass or ulcer disease. No significant esophageal reflux was seen during real time performance of this study. The duodenal bulb and sweep are unremarkable. The small bowel study shows normal transit to the colon in less than 45 minutes. There is normal muc osal fold pattern throughout the small bowel. There is no evidence of any stricture or filling defec t noted. The terminal ileum is unremarkable. IMPRESSION: Normal upper GI study and small bowel follow through.
== END | disposition home or self-care (01) ==
LOC: RADFLMAIN 08:45
PROVIDERS: ATTEND Family Medicine
DX: R10.84 Generalized abdominal pain (principal)
CPT/HCPCS: 74240; 74248

== ENCOUNTER → 2019-04-03 | Outpatient (CLI) | payer OTHER ==
--- NOTE | 2019-04-03 12:37 | CT ---
EXAMINATION TYPE: CT abdomen pelvis wo con DATE OF EXAM: 04/03/2019 COMPARISON: None INDICATION: Generalized abdominal pain DLP: 352 mGycm, Automated exposure control for dose reduction was used. CONTRAST: 0 mL of Isovue 300. Study performed with Oral Contrast TECHNIQUE: Axial images were obtained from above the diaphragm to the pubic rami in the axial plane a t 5 mm thick sections. Reconstructed images are reviewed on the computer in the coronal plane. FINDINGS: Limited CT sections are obtained the lung bases. There is a calcified granuloma within the anterior lingula. Series 6 image 2 additional granuloma appears to be in the posterior lateral right lung base . Series 2 image 12. Mild coronary artery calcification is noted. CT ABDOMEN: Liver: Normal Spleen: Normal Pancreas: Normal Adrenal glands: The adrenal glands are normal. Gallbladder: Cholelithiasis is present Kidneys: No masses are evident. No hydronephrosis is present. No cysts are present. No renal stone s are evident. Aorta: Vascular calcification is within the aorta. Inferior vena cava: Normal. CT PELVIS: Loops of bowel within the abdomen and pelvis are normal. There are loops of bowel which are incom pletely distended or lack oral contrast limiting their evaluation. Appendix: Normal as visualized. Urinary bladder: Normal. Genitourinary structures: Uterus is unremarkable. Adnexal regions are clear. Osseous structures: No suspicious lytic or sclerotic lesions. Facet hypertrophy is present. IMPRESSIONS: 1. No suspicious abnormality to account for generalized abdominal pain
== END | disposition home or self-care (01) ==
LOC: RADCTMAIN 08:57
PROVIDERS: ATTEND Family Medicine
DX: R10.84 Generalized abdominal pain (principal); R14.0 Abdominal distension (gaseous)
CPT/HCPCS: 74176; Q9967

== ENCOUNTER → 2019-07-02 | Outpatient (CLI) | payer OTHER ==
[2019-07-02 10:01] LABS: Basophils % (A) 0 %; Eosinophils # (A) 0.2 k/uL (0-0.7); Eosinophils % (A) 3 %; HCT 43.3 % (34.0-46.0); HGB 13.5 gm/dL (11.4-16.0); Lymphocytes # (A) 2.1 k/uL (1.0-4.8); Lymphocytes % (A) 36 %; MCH 30.9 pg (25.0-35.0); MCHC 31.2 g/dL (31.0-37.0); Mean Platelet Volume 7.3; Monocytes # (A) 0.3 k/uL (0-1.0); Monocytes % (A) 6 %; Neutrophils % (A) 51 %; Platelet Count 200 k/uL (150-450); RBC 4.37 m/uL (3.80-5.40); RDW 13.1 % (11.5-15.5); WBC 5.8 k/uL (3.8-10.6)
[2019-07-02 15:25] LABS: African American GFR (CKD) 95.5 (60.0-200.0); Albumin 4.1 g/dL (3.80-4.90); Albumin/Globulin Ratio 2.28 (1.60-3.17); Anion Gap 5.4 mmol/L (4.00-12.00); BUN/Creat Ratio 17.5 Ratio (12.00-20.00); Carbon Dioxide 25.6 mmol/L (21.6-31.8); Globulin 1.8 g/dL (1.6-3.3); LDL Cholesterol,Calculated 54.6 mg/dL (0.0-131.0); Non-African American GFR(CKD) 82.4 (60.0-200.0); Potassium 4.5 mmol/L (3.5-5.5); Total Bilirubin 0.3 mg/dL (0.2-1.2); Total Protein 5.9 g/dL (6.2-8.2); VLDL Calculation 17.4 mg/dL (5.00-40.00)
[2019-07-02 15:32] LABS: T4, Free (Free Thyroxine) 1.2 ng/dL (0.80-1.80)
[2019-07-02 17:17] LABS: Gliadin AB IgA, Deaminated NEGATIVE (NEGATIVE); Gliadin AB IgG, Deaminated NEGATIVE (NEGATIVE)
== END | disposition home or self-care (01) ==
LOC: LABWHC1 08:29
PROVIDERS: ATTEND Internal Medicine
DX: R10.9 Unspecified abdominal pain (principal); F41.1 Generalized anxiety disorder
CPT/HCPCS: 36415; 80053; 80061; 82150; 83516; 83690; 84439; 84443; 85025; 93005

== ENCOUNTER → 2019-07-03 | Outpatient (CLI) | payer OTHER ==
--- NOTE | 2019-07-03 19:20 | CT ---
EXAMINATION TYPE: CT soft tissue neck w con DATE OF EXAM: 07/03/2019 COMPARISON: None HISTORY: Hearing loss and throat pain. CT DLP: 339.5 mGycm CONTRAST: Patient injected with 100 mL of Isovue 300. TECHNIQUE: Axial images at 3 mm thick sections. Reconstructed images in the coronal plane and sagitt al plane are reviewed. FINDINGS: Limited CT sections are obtained the lung apices. There is a 0.9 cm area of pneumonitis in the peripheral left upper lung field. Series 6 image 19. A 0.5 cm calcification is along the anterio r pleural margin of the left upper lung field CT neck: The torus tubarius and fossa of Rosenmuller are normal. Title Curator spaces are normal. Para nasal sinuses and mastoid air cells are clear. Parotid glands appear normal and symmetrical. Submandibular glands, are normal. Parapharyngeal spac es are normal. No suspicious adenopathy is evident. The hypopharynx appears within normal limits. Piriform sinuses may be somewhat deep. Vocal cord level appear symmetrical. Thyroid as visualized is normal. Osseous structures are normal. IMPRESSIONS: 1. Small area of pneumonitis within the left upper lung field as well as a calcification in the perip oneil. 2. No suspicious abnormality to account for throat pain
--- NOTE | 2019-07-03 19:24 | CT ---
EXAMINATION TYPE: CT iac w con DATE OF EXAM: 07/03/2019 COMPARISON: None HISTORY: Hearing loss and throat pain. CT DLP: 339.5 mGycm Automated exposure control for dose reduction was used. CONTRAST: CT scan of the IACs is performed with IV Contrast, patient injected with 100 mL of Isovue 300. FINDINGS: Internal auditory canals are symmetrical. No expansion or erosion is evident. Cerebellar po ntine angles are normal. No abnormal enhancement is evident. Mastoid air cells are clear. Semicircular canals are normal. Cochlea are normal. There is a small amount of fluid within the right sphenoid sinus. Scutum are normal. Middle ears are clear. Incus and malleus have normal orientation. personnel quality assurance auditor y canals are clear. IMPRESSION: 1. Normal internal auditory canal study.
== END | disposition home or self-care (01) ==
LOC: RADCTMAIN 15:51
PROVIDERS: ATTEND Family Medicine
DX: H92.02 Otalgia, left ear (principal); R22.1 Localized swelling, mass and lump, neck
CPT/HCPCS: 70481; 70491; Q9967

== ENCOUNTER → 2019-07-29 | Outpatient (CLI) | payer OTHER ==
--- NOTE | 2019-07-29 10:21 | XR ---
EXAMINATION TYPE: XR chest 2V DATE OF EXAM: 07/29/2019 COMPARISON: Prior chest x-ray 05/09/2018 HISTORY: Pneumonitis TECHNIQUE: Frontal and lateral views of the chest are obtained. FINDINGS: There is no focal air space opacity, pleural effusion, or pneumothorax seen. Calcified gra nulomas in the lungs are stable. Patient is post median sternotomy. There is a spinal curvature. The cardiac silhouette size is stable. The osseous structures are intact, there is thoracic spondylosis . IMPRESSION: No acute cardiopulmonary process.
== END | disposition home or self-care (01) ==
LOC: RADXRMAIN 09:58
PROVIDERS: ATTEND Family Medicine
DX: J18.9 Pneumonia, unspecified organism (principal)
CPT/HCPCS: 71046

== ENCOUNTER → 2020-01-02 | Outpatient (CLI) | payer OTHER ==
--- NOTE | 2020-01-03 12:26 | MR ---
EXAMINATION TYPE: MR brain wo/w con, MR angio head wo con DATE OF EXAM: 01/02/2020 COMPARISON: CT brain 04/03/2016, CT soft tissue neck 07/03/2019, 04/03/2016, 08/11/2015, CTA head and nec k 01/07/2015 HISTORY: Dizziness, memory loss TECHNIQUE: Multiplanar, multisequence images of the brain and brainstem is performed without and with IV contras t, utilizing 6.5 mL intravenous Gadavist . Ecro-[id number]-[id number] imaging obtained through the brain, three-d imensional reconstructions on an alternate workstation FINDINGS: Diffusion weighted images demonstrate no evidence of a recent infarct or other diffusion ab normality. There is no extra-axial fluid collection. Some scattered hyperintensities on inversion r ecovery T2-weighted sequences within the deep white matter, approximately 10-15 lesions are present, largest on axial image 19 measures 7 to 8 mm. The ventricular system and cisternal spaces are normal in size and appearance. The brain volume is age appropriate. Midline structures demonstrate normal morphology. The craniocervical junction appears within normal limits. Post contrast images demonstrate a focus of enhancement in the right cerebellar hemisphere m easuring approximately 17 mm, there is small feeding arterial branches, draining veins are suspected. There are associated flow voids in T1, inversion recovery and T2-weighted sequences, serpiginous rehana t of tangled vessels is better delineated on the MRA. The dural venous sinuses appear patent. The vis ualized sinuses are remarkable for inflammatory change in the sphenoid on the right and the globes ar e intact. Minimal inflammatory change in the temporal bone suspected on the right. MRA shows patent anterior and posterior circulation. No evident embolus no dissection. Prominence of small feeding artery suspected on axial image 70 is mildly aneurysmal measuring only 4 mm may be stab le IMPRESSION: Nonspecific white matter demyelination. 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 Mild right sphenoid sinus disease appears chronic and additional fi ndings above
== END | disposition home or self-care (01) ==
LOC: RADMRIMAIN 12:14
PROVIDERS: ATTEND Psychiatry & Neurology Pain Medicine
DX: G37.8 Other specified demyelinating diseases of central nervous system (principal); J32.3 Chronic sphenoidal sinusitis; G93.89 Other specified disorders of brain; I67.1 Cerebral aneurysm, nonruptured; R93.0 Abnormal findings on diagnostic imaging of skull and head, not elsewhere classified; Z88.8 Allergy status to other drugs, medicaments and biological substances; Z88.5 Allergy status to narcotic agent
CPT/HCPCS: 70544; 70553; A9585

== ENCOUNTER → 2020-03-11 | Outpatient (CLI) | payer OTHER ==
[2020-03-11 16:15] LABS: Basophils % (A) 0 %; Eosinophils # (A) 0.2 k/uL (0-0.7); Eosinophils % (A) 3 %; HCT 47.6 % (34.0-46.0); HGB 15.2 gm/dL (11.4-16.0); Lymphocytes # (A) 2.7 k/uL (1.0-4.8); Lymphocytes % (A) 41 %; MCH 31.6 pg (25.0-35.0); MCHC 31.9 g/dL (31.0-37.0); Mean Platelet Volume 7.3; Monocytes # (A) 0.4 k/uL (0-1.0); Monocytes % (A) 5 %; Neutrophils # (A) 3.2 k/uL (1.3-7.7); Neutrophils % (A) 48 %; Platelet Count 226 k/uL (150-450); RBC 4.81 m/uL (3.80-5.40); Reticulocyte % 1.9 % (0.5-2.0); WBC 6.7 k/uL (3.8-10.6)
[2020-03-12 02:31] LABS: Ferritin 47.2 ng/mL (10.0-291.0)
[2020-03-12 03:37] LABS: ALT 34 U/L (8-44); AST 32 U/L (13-35); African American GFR (CKD) 94.9 (60.0-200.0); Albumin/Globulin Ratio 2.76 (1.60-3.17); Alkaline Phosphatase 82 U/L (41-126); C Reactive Protein <0.4 mg/dL (0.0-0.8); Calcium 9.3 mg/dL (8.7-10.3); Carbon Dioxide 23.9 mmol/L (21.6-31.8); Chloride 104 mmol/L (96-109); Creatine Kinase 61 U/L (26-186); Folate, Serum >24.0 ng/mL; Globulin 1.7 g/dL (1.6-3.3); Glucose 83 mg/dL (70-110); Iron 126 ug/dL (50-170); Non-African American GFR(CKD) 81.8 (60.0-200.0); Potassium 4.5 mmol/L (3.5-5.5); Sodium 143 mmol/L (135-145); Total Bilirubin 0.3 mg/dL (0.3-1.2); Total Iron Binding Capacity 291 ug/dL (228-460); Total Protein 6.4 g/dL (6.2-8.2)
== END | disposition home or self-care (01) ==
LOC: LABWHC1 15:28
PROVIDERS: ATTEND Psychiatry & Neurology Neurology
DX: R53.83 Other fatigue (principal); Z51.81 Encounter for therapeutic drug level monitoring
CPT/HCPCS: 36415; 80053; 82306; 82533; 82550; 82607; 82626; 82668; 82728; 82746; 83036; 83540; 83550; 83970; 84207; 84439; 84443; 84466; 84481; 85025; 85045; 86140

== ENCOUNTER 2021-06-21 08:31 | Emergency (ER) | payer OTHER ==
[2021-06-21] MEDS ORDERED: SODIUM CHLORIDE 0.9% 500 ML 500 ML IV STA (09:21)
[2021-06-21] MEDS ORDERED: ONDANSETRON 4 MG/2 ML VIAL IVP STA (09:21)
[2021-06-21] MEDS ORDERED: SODIUM CHLORIDE 0.9% 1,000 ML IV STA (09:21)
[2021-06-21] MEDS ORDERED: DIPHENOX-ATROP 2.5-0.025 MG 1 EACH TAB PO STA (09:55)
[2021-06-21 10:00] LABS: Basophils # (A) 0.1 k/uL (0-0.2); Basophils % (A) 1 %; Eosinophils # (A) 0.1 k/uL (0-0.7); Eosinophils % (A) 1 %; HGB 15.9 gm/dL (11.4-16.0); Lymphocytes # (A) 2.2 k/uL (1.0-4.8); Lymphocytes % (A) 23 %; MCH 30.8 pg (25.0-35.0); MCHC 31.8 g/dL (31.0-37.0); MCV 96.9 fL (80.0-100.0); Mean Platelet Volume 6.9; Monocytes # (A) 0.5 k/uL (0-1.0); Monocytes % (A) 6 %; Neutrophils # (A) 6.4 k/uL (1.3-7.7); Neutrophils % (A) 67 %; Platelet Count 267 k/uL (150-450); RBC 5.15 m/uL (3.80-5.40); RDW 12.5 % (11.5-15.5); WBC 9.4 k/uL (3.8-10.6)
[2021-06-21 10:21] LABS: Albumin 4.3 g/dL (3.5-5.0); Calcium 9.2 mg/dL (8.4-10.2); Potassium 4.3 mmol/L (3.5-5.1); Total Bilirubin 0.6 mg/dL (0.2-1.3); Total Protein 7.2 g/dL (6.3-8.2)
[2021-06-21 10:39] LABS: Appearance,Urine Clear (Clear); Bilirubin,Urine Negative (Negative); Blood,Urine Trace (Negative); Color,Urine Yellow; Glucose,Urine (UA) Negative (Negative); Ketones,Urine Negative (Negative); Leukocyte Esterase,Urine Negative (Negative); Nitrite,Urine Negative (Negative); Protein,Urine Negative (Negative); RBC,Urine 1 /hpf (0-5); Specific Gravity,Urine 1.005 (1.001-1.035); Squamous Epithelial Cell,Urine 1 /hpf (0-4); Urobilinogen,Urine <2.0 mg/dL (<2.0); WBC,Urine 1 /hpf (0-5)
[2021-06-21] MEDS ORDERED: NAPROXEN 250 MG TAB PO STA (11:30)
--- NOTE | 2021-06-21 11:39 | ED ---
Nausea/Vomiting/Diarrhea HPI - General Chief complaint: Nausea/Vomiting/Diarrhea Stated complaint: Chills,back pain Time Seen by Provider: 06/21/21 09:07 Source: patient, RN notes reviewed Mode of arrival: ambulatory Limitations: no limitations - History of Present Illness Initial comments: This a 56-year-old female presents emergency Department chief complaint of GI upset. Patient states she said diarrhea for one week. Patient states it seems to come and go states that she did see her primary care physician told her it was most likely enteritis as advancing a large number of this. She states she's been hydrating but states concerned that she still had some loose diarrhea today. Denies any melena or hematochezia. Denies any chest pain shortness of breath. She does complain of some achiness of her legs and pain but states is chronic she does see neurology for this issue. She denies any bowel, bladder incontinence or retention no dysuria no hematuria. - Related Data Home Medications Medication Instructions Recorded Confirmed Aspirin EC [Ecotrin Low Dose] 81 mg PO DAILY 12/15/15 06/21/21 Atorvastatin [Lipitor] 40 mg PO HS 12/15/15 06/21/21 Naproxen 500 mg PO BID PRN 12/15/15 06/21/21 Metoprolol Succinate [Toprol XL] 25 mg PO BID 06/21/21 06/21/21 clonazePAM [KlonoPIN] 0.5 mg PO TID PRN 06/21/21 06/21/21 rOPINIRole HCL [Requip] 1 mg PO HS 06/21/21 06/21/21 Allergies Allergy/AdvReac Type Severity Reaction Status Date / Time venom-wasp [wasp venom] Allergy Severe Anaphylaxis Verified 06/21/21 10:37 fentanyl Allergy Unknown Verified 06/21/21 10:37 bupropion [From Wellbutrin] AdvReac Severe VIOLENT Verified 06/21/21 10:37 fluoxetine [From Prozac] AdvReac Severe SUICIDAL Verified 06/21/21 10:37 Beta-Blockers AdvReac Unknown LOW BP, Verified 06/21/21 10:37 (Beta-Adrenergic Bloc PASSES OUT milk AdvReac Unknown Unknown Verified 06/21/21 10:37 Review of Systems ROS Statement: Those systems with pertinent positive or pertinent negative responses have been documented in the HPI. ROS Other: All systems not noted in ROS Statement are negative. Past Medical History Past Medical History: Coronary Artery Disease (CAD), COPD, Hyperlipidemia, Musculoskeletal Disorder, Sleep Apnea/CPAP/BIPAP, Supraventricular Tachycardia (SVT) Additional Past Medical History / Comment(s): RESTLESS LEG SYNDROME, USES C-PAP MACHINE, BRONCHITIS 2 WEEKS AGO., HERNIATED DISCS, HAS ATHLETES FOOT, HYPOGLYCEMIA-WATCHES DIET., VERTIGO, RAPID HEART RATE. History of Any Multi-Drug Resistant Organisms: None Reported Past Surgical History: Adenoidectomy, Coronary Bypass/CABG, Heart Catheterization Additional Past Surgical History / Comment(s): EAR TUBES , D & C, CABG (JUNE 2011) Past Anesthesia/Blood Transfusion Reactions: No Reported Reaction, Motion Sickness Past Psychological History: Anxiety, Panic Disorder Smoking Status: Current every day smoker Past Alcohol Use History: Occasional Past Drug Use History: None Reported - Past Family History Mother Family Medical History: Cancer Additional Family Medical History / Comment(s): BREAST CA Father Family Medical History: Cancer Additional Family Medical History / Comment(s): SKIN, LUNG, THROAT AND BRAIN CANCER WITH METS. General Exam Limitations: no limitations General appearance: alert, in no apparent distress Head exam: Present: atraumatic, normocephalic, normal inspection Eye exam: Present: normal appearance, PERRL, EOMI. Absent: scleral icterus, conjunctival injection, periorbital swelling Neck exam: Present: normal inspection. Absent: tenderness, meningismus, lymphadenopathy Respiratory exam: Present: normal lung sounds bilaterally. Absent: respiratory distress, wheezes, rales, rhonchi, stridor Cardiovascular Exam: Present: regular rate, normal rhythm, normal heart sounds. Absent: systolic murmur, diastolic murmur, rubs, gallop, clicks GI/Abdominal exam: Present: soft, normal bowel sounds. Absent: distended, tenderness, guarding, rebound, rigid Back exam: Absent: CVA tenderness (R), CVA tenderness (L) Course Vital Signs 06/21/21 08:37 Temperature 97.9 F Pulse Rate 87 Respiratory 16 Rate Blood Pressure 111/81 O2 Sat by Pulse 99 Oximetry Medical Decision Making - Medical Decision Making 56-year-old female presented for diarrhea. Patient states that she's had on-and-off diarrhea for one week. Patient's labs reveal any significant findi ngs. Patient will be discharged in stable condition after fluid hydration. - Lab Data Result diagrams: 06/21/21 09:50 06/21/21 09:50 Lab Results 06/21/21 06/21/21 06/21/21 Range/Units 09:50 09:50 10:28 WBC 9.4 (3.8-10.6) k/uL RBC 5.15 (3.80-5.40) m/uL Hgb 15.9 (11.4-16.0) gm/dL Hct 50.0 H (34.0-46.0) % MCV 96.9 (80.0-100.0) fL MCH 30.8 (25.0-35.0) pg MCHC 31.8 (31.0-37.0) g/dL RDW 12.5 (11.5-15.5) % Plt Count 267 (150-450) k/uL MPV 6.9 Neutrophils % 67 % Lymphocytes % 23 % Monocytes % 6 % Eosinophils % 1 % Basophils % 1 % Neutrophils # 6.4 (1.3-7.7) k/uL Lymphocytes # 2.2 (1.0-4.8) k/uL Monocytes # 0.5 (0-1.0) k/uL Eosinophils # 0.1 (0-0.7) k/uL Basophils # 0.1 (0-0.2) k/uL Sodium 138 (137-145) mmol/L Potassium 4.3 (3.5-5.1) mmol/L Chloride 105 (98-107) mmol/L Carbon Dioxide 26 (22-30) mmol/L Anion Gap 7 mmol/L BUN 8 (7-17) mg/dL Creatinine 0.84 (0.52-1.04) mg/dL Est GFR (CKD-EPI)AfAm 89 (>60 ml/min/1.73 sqM) Est GFR (CKD-EPI)NonAf 77 (>60 ml/min/1.73 sqM) Glucose 106 H (74-99) mg/dL Calcium 9.2 (8.4-10.2) mg/dL Total Bilirubin 0.6 (0.2-1.3) mg/dL AST 24 (14-36) U/L ALT 15 (4-34) U/L Alkaline Phosphatase 68 (38-126) U/L Total Protein 7.2 (6.3-8.2) g/dL Albumin 4.3 (3.5-5.0) g/dL Lipase 77 (23-300) U/L Urine Color Yellow Urine Appearance Clear (Clear) Urine pH 6.0 (5.0-8.0) Ur Specific [place] 1.005 (1.001-1.035) Urine Protein Negative (Negative) Urine Glucose (UA) Negative (Negative) Urine Ketones Negative (Negative) Urine Blood Trace H (Negative) Urine Nitrite Negative (Negative) Urine Bilirubin Negative (Negative) Urine Urobilinogen <2.0 (<2.0) mg/dL Ur Leukocyte Esterase Negative (Negative) Urine RBC 1 (0-5) /hpf Urine WBC 1 (0-5) /hpf Ur Squamous Epith Cells 1 (0-4) /hpf Disposition Clinical Impression: Diarrhea, Enteritis Disposition: HOME SELF-CARE Condition: Stable Instructions (If sedation given, give patient instructions): Acute Diarrhea (ED) Additional Instructions: Please return to the Emergency Department if symptoms worsen or any other concerns. Is patient prescribed a controlled substance at d/c from ED?: No Referrals: None,Stated [Primary Care Provider] - 1-2 days Time of Disposition: 12:18
[2021-06-21] MEDS ORDERED: DIPHENOX-ATROP STARTER PACK 8 TAB BTL PO STA (12:19)
[2021-06-21 12:31] VITALS: BP 119/74; PULSE 59; RESP 18; TEMP 98.3
== END 2021-06-21 12:31 | disposition home or self-care (01) ==
LOC: EC 08:31
DX: K52.9 Noninfective gastroenteritis and colitis, unspecified (principal); J44.9 Chronic obstructive pulmonary disease, unspecified; F17.200 Nicotine dependence, unspecified, uncomplicated; E78.5 Hyperlipidemia, unspecified; I25.10 Atherosclerotic heart disease of native coronary artery without angina pectoris; Z79.899 Other long term (current) drug therapy; Z91.030 Bee allergy status; Z88.5 Allergy status to narcotic agent; Z88.8 Allergy status to other drugs, medicaments and biological substances; Z91.011 Allergy to milk products; Z79.82 Long term (current) use of aspirin
CPT/HCPCS: 36415; 80053; 81001; 83690; 85025; 96360; 96361; 99284

== ENCOUNTER → 2022-09-03 | Outpatient (CLI) | payer OTHER ==
[2022-09-03 21:26] LABS: Basophils # (A) 0.04 X 10*3/uL (0.00-0.10); Basophils % (A) 0.5 %; Eosinophils # (A) 0.08 X 10*3/uL (0.04-0.35); HCT 49.1 % (37.2-46.3); HGB 16.3 d/dL (12.0-15.0); Lymphocytes # (A) 2.48 X 10*3/uL (0.90-5.00); Lymphocytes % (A) 30.5 %; MCH 31.8 pg (27.0-32.0); MCHC 33.2 d/dL (32.0-37.0); MCV 95.9 FL (80.0-97.0); Monocytes # (A) 0.55 X 10*3/uL (0.20-1.00); Monocytes % (A) 6.8 %; NRBC Per 100 WBC 0 X 10*3/uL (0.00-0.01); Neutrophils # (A) 4.95 X 10*3/uL (1.80-7.70); Neutrophils % (A) 60.8 %; Platelet Count 239 X 10*3/uL (140-440); RBC 5.12 X 10*6/uL (4.10-5.20); RDW 12.5 % (11.5-14.5); WBC 8.13 X 10*3/uL (4.50-10.00)
[2022-09-03 22:15] LABS: ALT 19 U/L (8-44); AST 25 U/L (13-35); Albumin 4.5 d/dL (3.8-4.9); Albumin/Globulin Ratio 1.96 Ratio (1.60-3.17); Alkaline Phosphatase 74 U/L (41-126); BUN/Creat Ratio 11.56 Ratio (12.00-20.00); Blood Urea Nitrogen 10.4 mg/dL (9.0-27.0); Calcium 9.4 mg/dL (8.7-10.3); Carbon Dioxide 23.7 mmol/L (21.6-31.8); Chloride 106 mmol/L (96-109); Globulin 2.3 d/dL (1.6-3.3); Glucose 85 mg/dL (70-110); Potassium 4.5 mmol/L (3.5-5.5); Sodium 141 mmol/L (135-145); T4, Free (Free Thyroxine) 1.43 ng/dL (0.80-1.80); Total Bilirubin 0.5 mg/dL (0.3-1.2); Total Protein 6.8 d/dL (6.2-8.2)
== END | disposition home or self-care (01) ==
LOC: LABWHC1 14:39
PROVIDERS: ATTEND Nurse Practitioner Acute Care
DX: I25.10 Atherosclerotic heart disease of native coronary artery without angina pectoris (principal); E53.9 Vitamin B deficiency, unspecified; E55.9 Vitamin D deficiency, unspecified; R53.83 Other fatigue; R20.8 Other disturbances of skin sensation; R41.3 Other amnesia
CPT/HCPCS: 36415; 80053; 82306; 82607; 84207; 84439; 84443; 84480; 85025